=== PATIENT | female | born 1975 | race Caucasian/White ===

== ENCOUNTER 2016-08-02 16:10 | Emergency (ER) | payer OTHER ==
[~2016-08-02] VITALS: Ht 170.2 cm; Wt 106.6 kg
[~2016-08-02 16:10] MED LIST: ALBUTEROL INH IH; ALTOPREV10 MG PO; AMOXICILLIN 50500 M1 PO; APPEAREX2500 MCG PO; ASPIRIN EC81 M1 PO; ASPIRIN81 M2; ATIVAN1 MG PO; BACTRIM DS TAB1 EACH PO; BIOTIN1 MG; BIOTIN1 MG PO; CEFDINIR300 MG PO; CELEXA20 MG PO; CENTRUM COMPLE1 EACH PO; CLEOCIN HCL150 MG PO; CLEOCIN HCL300 MG PO; DIFLUCAN150 MG PO; DOXYCYCLINE 10100 MG PO; EQL OMEGA 3 FI1 EACH PO; FISH OIL500 M1 PO; FLAGYL500 MG PO; FLAX SEED OIL1000 MG; FLEXERIL PO; FLONASE 0.05%50 MCG NASAL; FLONASE 0.05%50 MCG NS; GLUCOPHAGE500 MG PO; HYDROCHLOROTHIA25 M2 PO; HYDROCODONE-AC120 ML PO; IBUPROFEN 600600 M1 PO; IBUPROFEN 800800 M1 PO; IBUPROFEN 800800 MG PO; LAMICTAL XR50 MG PO; LAMICTAL100 MG PO; LISINOPRIL20 MG PO; LORTABELXR PO; LOVASTAT10 PO; MACROBID 100 M100 M1 PO; MEDROL DOSPAK21 TAB PO; MEDROLDOSEPACK PO; MEGA BIOTIN10000 MCG PO; METFORMIN 500500 MG PO; MIRALAX255 GM PO; MUCINEX DM TABL1 TA1 PO; NAPROSYN500 MG PO; NORCO 5-325 TA1 EACH PO; ONE DAILY1 EAC2 PO; PREDNISONE 10 M10 MG PO; PREDNISONE 20 M20 M1 PO; PROAIR HFA8.5 GM INH; PROZAC 10 MG CA10 M1 PO; PROZAC 10 MG CA10 MG PO; REPLACE1 EACH PO; TESSALON PERLE100 MG PO; TESSALON200 MG PO; ULTRAM 50MG TAB50 MG PO; VENTOLIN HFA 1818 GM INH; ZOFRAN ODT4 MG PO; ZPAK PO; [UNRECOGNIZED DRUG - SUPPLY] PO
[2016-08-02] MEDS ORDERED: SENOKOT-S1 TA1 PO (17:55)
[2016-08-02] MEDS ORDERED: NORCO 5-325 TA1 EACH PO (17:56)
[2016-08-02 18:12] VITALS: BP 148/88
== END 2016-08-02 18:13 | disposition home or self-care (01) ==
LOC: ER 16:10
DX: S80.11XA Contusion of right lower leg, initial encounter (principal); Z23 Encounter for immunization; I10 Essential (primary) hypertension; F32.9 Major depressive disorder, single episode, unspecified; Z88.5 Allergy status to narcotic agent; Z88.0 Allergy status to penicillin; Z87.891 Personal history of nicotine dependence; F41.9 Anxiety disorder, unspecified; W18.30XA Fall on same level, unspecified, initial encounter; Y93.89 Activity, other specified; Y92.89 Other specified places as the place of occurrence of the external cause; Y99.9 Unspecified external cause status

== ENCOUNTER 2016-10-25 17:32 | Emergency (ER) | payer OTHER ==
[~2016-10-25] VITALS: Ht 165.1 cm; Wt 106.6 kg
[~2016-10-25 17:32] MED LIST changes: +SENOKOT-S1 TA1 PO
[2016-10-25 17:33] VITALS: BP 122/76
[2016-10-25] MEDS ORDERED: CLARITIN10 MG PO (17:44)
[2016-10-25] MEDS ORDERED: ERYTHROMYCIN E3.5 G1 OPHTHALMIC (17:44)
== END 2016-10-25 18:08 | disposition home or self-care (01) ==
LOC: ER 17:32
DX: H00.013 Hordeolum externum right eye, unspecified eyelid (principal); I10 Essential (primary) hypertension; F32.9 Major depressive disorder, single episode, unspecified; F41.9 Anxiety disorder, unspecified; F10.99 Alcohol use, unspecified with unspecified alcohol-induced disorder; Z88.0 Allergy status to penicillin; Z88.5 Allergy status to narcotic agent; Z87.891 Personal history of nicotine dependence

== ENCOUNTER 2016-11-10 20:33 | Emergency (ER) | payer OTHER ==
[~2016-11-10] VITALS: Ht 167.6 cm; Wt 108.9 kg
[~2016-11-10 20:33] MED LIST changes: +CLARITIN10 MG PO; +ERYTHROMYCIN E3.5 G1 OPHTHALMIC
[2016-11-10 20:37] VITALS: BP 140/79
[2016-11-10] MEDS ORDERED: MOBIC15 MG PO (21:34)
[2016-11-10] MEDS ORDERED: BACTRIM DS TAB1 EACH PO (21:45)
== END 2016-11-10 22:16 | disposition home or self-care (01) ==
LOC: ER 20:33
DX: L02.212 Cutaneous abscess of back [any part, except buttock and flank] (principal); M25.561 Pain in right knee; I10 Essential (primary) hypertension; F41.9 Anxiety disorder, unspecified; F32.9 Major depressive disorder, single episode, unspecified; F10.99 Alcohol use, unspecified with unspecified alcohol-induced disorder; Z88.5 Allergy status to narcotic agent; Z88.0 Allergy status to penicillin; Z87.891 Personal history of nicotine dependence

== ENCOUNTER 2017-04-06 21:02 | Emergency (ER) | payer OTHER ==
[~2017-04-06] VITALS: Ht 167.6 cm; Wt 113.4 kg
--- NOTE | ~2017-04-06 | EKG ---
[address] [place] [address] ELECTROCARDIOGRAM REPORT Name: NATHANIEL GONSALEZ LUIS Room #: [id number] Admission: 04/06/17 Attend Phys: Discharge: 04/06/17 Date of : 79 Report #: [id number] THIS REPORT FOR: //name// [facility] ED Test Date: 2017-04-06 Test Time: 21:32:30 Pat Name: NATHANIEL GONSALEZ Department: Room: Gender: F Civil Design Technician: Kun ROBERT : 1975 Requested By: Tia Nguyễn Order Number: [id number] MD: Vadim Valdez Measurements Intervals [place] Rate: 97 P: 51 IN: 160 QRS: 30 QRSD: 109 T: 62 QT: 348 QTc: 442 Interpretive Statements Sinus rhythm Probable left atrial enlargement Low voltage, extremity and precordial leads Compared to ECG 05/21/2013 04:20:11 Low QRS voltage now present Electronically Signed On 04-08-2017 8:03:37 INSULATION MACHINE OPERATOR by Vadim Valdez [email or web address] <ELECTRONICALLY SIGNED> By: Vadim Valdez MD, [facility] 04/08/17 0803 31 31 Vadim Valdez MD, [facility] /EPI
[~2017-04-06 21:02] MED LIST changes: +MOBIC15 MG PO
[2017-04-06 21:04] VITALS: BP 170/108
[2017-04-06] MEDS ORDERED: WELLBUTRIN XL300 MG PO (21:15)
[2017-04-06] MEDS ORDERED: GABAPENTIN 100100 MG PO (21:15)
[2017-04-06] MEDS ORDERED: LAMICTAL100 MG PO (21:15)
[2017-04-06] MEDS ORDERED: WELLBUTRIN SR100 MG PO (21:16)
[2017-04-06 21:51] LABS: ABSOLUTE NEUTROPHILS 6.6 thou/uL (1.4-8.2); BASOPHILS 0.6 % (0.0-2.0); EOSINOPHILS 2.1 % (0.0-3.0); HEMATOCRIT 37.3 % (37.0-47.0); HEMOGLOBIN 12.5 gm/dL (12.0-15.0); LYMPHOCYTES 24.4 % (24.0-44.0); MCH 30.3 pg (26.0-34.0); MCHC 33.6 g/dL (28.0-37.0); MONOCYTES 6.9 % (1.0-8.0); PLATELET COUNT 332 thou/uL (150-400); RBC 4.14 mil/uL (4.20-5.00); RDW 13.5 % (10.5-14.5); WBC 10.1 thou/uL (4.0-11.0)
[2017-04-06 21:59] LABS: MANUAL DIFF NO
[2017-04-06 22:00] LABS: CALCIUM 9.4 mg/dL (8.5-10.1); CREATININE 1.2 mg/dL (0.6-1.0); POTASSIUM 4.1 mmol/L (3.5-5.1)
[2017-04-06] MEDS ORDERED: PROAIR HFA8.5 GM INH (22:22)
[2017-04-06] MEDS ORDERED: TESSALON PERLE100 MG PO (22:25)
== END 2017-04-06 22:30 | disposition home or self-care (01) ==
LOC: ER 21:02
PROVIDERS: Emergency Medicine
DX: J06.9 Acute upper respiratory infection, unspecified (principal); I10 Essential (primary) hypertension; F32.9 Major depressive disorder, single episode, unspecified; F41.9 Anxiety disorder, unspecified; G47.30 Sleep apnea, unspecified; Z88.5 Allergy status to narcotic agent; Z88.0 Allergy status to penicillin; Z87.891 Personal history of nicotine dependence

== ENCOUNTER 2017-05-23 16:35 | Emergency (ER) | payer OTHER ==
[~2017-05-23] VITALS: Ht 167.6 cm; Wt 113.4 kg
[~2017-05-23 16:35] MED LIST changes: +GABAPENTIN 100100 MG PO; +WELLBUTRIN SR100 MG PO; +WELLBUTRIN XL300 MG PO
[2017-05-23] MEDS ORDERED: NAPROSYN500 MG PO (17:11)
[2017-05-23] MEDS ORDERED: BACTRIM DS TAB1 EACH PO (17:11)
== END 2017-05-23 17:36 | disposition home or self-care (01) ==
LOC: ER 16:35
DX: N61.0 Mastitis without abscess (principal); I10 Essential (primary) hypertension; G47.30 Sleep apnea, unspecified; Z88.0 Allergy status to penicillin; Z88.5 Allergy status to narcotic agent; Z87.891 Personal history of nicotine dependence

== ENCOUNTER 2017-05-25 15:14 | Emergency (ER) | payer OTHER ==
[~2017-05-25] VITALS: Ht 167.6 cm; Wt 136.1 kg
[2017-05-25 15:41] LABS: HEMATOCRIT 36.9 % (37.0-47.0); HEMOGLOBIN 12.5 gm/dL (12.0-15.0); MCH 29.5 pg (26.0-34.0); MCHC 33.8 g/dL (28.0-37.0); MCV 87.3 fL (80.0-100.0); RBC 4.23 mil/uL (4.20-5.00); RDW 12.7 % (10.5-14.5); WBC 11.7 thou/uL (4.0-11.0)
[2017-05-25 15:56] LABS: CALCIUM 9.8 mg/dL (8.5-10.1)
[2017-05-25] MEDS ORDERED: PREDNISONE 20 M20 MG PO (16:33)
[2017-05-25] MEDS ORDERED: VENTOLIN HFA 1818 GM INH ×2 (16:35→16:36)
== END 2017-05-25 16:53 | disposition home or self-care (01) ==
LOC: ER 15:14
PROVIDERS: Physician Assistant
DX: J35.1 Hypertrophy of tonsils (principal); J20.8 Acute bronchitis due to other specified organisms; I10 Essential (primary) hypertension; F41.9 Anxiety disorder, unspecified; F32.9 Major depressive disorder, single episode, unspecified; G47.30 Sleep apnea, unspecified; Z88.0 Allergy status to penicillin; Z88.5 Allergy status to narcotic agent; Z87.891 Personal history of nicotine dependence

== ENCOUNTER 2018-01-06 20:51 | Emergency (ER) | payer OTHER ==
[~2018-01-06] VITALS: Ht 165.1 cm; Wt 113.4 kg
[~2018-01-06 20:51] MED LIST changes: +PREDNISONE 20 M20 MG PO
[2018-01-06] MEDS ORDERED: LOMAIRA8 MG (21:04)
[2018-01-06] MEDS ORDERED: TRAMADOL 50 MG50 MG PO (21:50)
[2018-01-06 21:54] VITALS: BP 116/46
== END 2018-01-06 21:59 | disposition home or self-care (01) ==
LOC: ER 20:51
DX: M17.12 Unilateral primary osteoarthritis, left knee (principal); I10 Essential (primary) hypertension; F32.9 Major depressive disorder, single episode, unspecified; F41.9 Anxiety disorder, unspecified; G47.30 Sleep apnea, unspecified; Z88.5 Allergy status to narcotic agent; Z88.0 Allergy status to penicillin; Z87.891 Personal history of nicotine dependence

== ENCOUNTER 2018-03-10 11:56 | Emergency (ER) | payer OTHER ==
[~2018-03-10] VITALS: Ht 165.1 cm; Wt 111.1 kg
[~2018-03-10 11:56] MED LIST changes: +LOMAIRA8 MG; +TRAMADOL 50 MG50 MG PO
[2018-03-10 13:15] VITALS: BP 134/81
== END 2018-03-10 13:16 | disposition home or self-care (01) ==
LOC: ER 11:56
DX: R60.0 Localized edema (principal); R20.2 Paresthesia of skin

== ENCOUNTER 2018-07-04 17:55 | Emergency (ER) | payer OTHER ==
[~2018-07-04] VITALS: Ht 165.1 cm; Wt 113.4 kg
[2018-07-04 17:58] VITALS: BP 144/73
[2018-07-04] MEDS ORDERED: BACTRIM DS TAB1 EACH PO (18:33)
== END 2018-07-04 19:05 | disposition home or self-care (01) ==
LOC: ER 17:55
DX: L60.0 Ingrowing nail (principal); I10 Essential (primary) hypertension; G47.30 Sleep apnea, unspecified; Z88.5 Allergy status to narcotic agent; Z87.891 Personal history of nicotine dependence

== ENCOUNTER 2018-12-02 11:31 | Emergency (ER) | payer OTHER ==
[~2018-12-02] VITALS: Ht 165.1 cm; Wt 122.5 kg
[2018-12-02] MEDS ORDERED: BENAZEPRIL-HCT1 EA10 PO (11:51)
[2018-12-02] MEDS ORDERED: LIPITOR40 MG PO (11:51)
[2018-12-02] MEDS ORDERED: BACTRIM DS TAB1 EACH PO (12:12)
[2018-12-02 12:58] VITALS: BP 124/76
== END 2018-12-02 12:58 | disposition home or self-care (01) ==
LOC: ER 11:31
DX: L02.416 Cutaneous abscess of left lower limb (principal); I10 Essential (primary) hypertension; F32.9 Major depressive disorder, single episode, unspecified; F41.9 Anxiety disorder, unspecified; E78.5 Hyperlipidemia, unspecified; G47.30 Sleep apnea, unspecified; Z88.5 Allergy status to narcotic agent; Z87.891 Personal history of nicotine dependence

== ENCOUNTER 2019-07-06 10:34 | Emergency (ER) | payer OTHER ==
[~2019-07-06] VITALS: Ht 167.6 cm; Wt 111.1 kg
[~2019-07-06 10:34] MED LIST changes: +BENAZEPRIL-HCT1 EA10 PO; +LIPITOR40 MG PO
[2019-07-06 10:35] VITALS: BP 174/105
== END 2019-07-06 11:24 | disposition home or self-care (01) ==
LOC: ER 10:34
DX: J02.0 Streptococcal pharyngitis (principal); I10 Essential (primary) hypertension; G47.30 Sleep apnea, unspecified; Z87.891 Personal history of nicotine dependence; Z88.5 Allergy status to narcotic agent